=== PATIENT | male | born 1995 | race Two or more races ===

== ENCOUNTER 2022-08-23 08:52 | Emergency (ER) | payer MEDICAID ==
[2022-08-23 09:27] VITALS: BP 117/77
[2022-08-23] MEDS ORDERED: IBUP800T27 PO (10:21)
== END 2022-08-23 10:49 | disposition home or self-care (01) ==
LOC: ER 08:52
DX: S62.397A Other fracture of fifth metacarpal bone, left hand, initial encounter for closed fracture (principal); W22.01XA Walked into wall, initial encounter; Y93.89 Activity, other specified; Y92.89 Other specified places as the place of occurrence of the external cause; Y99.8 Other external cause status
CPT/HCPCS: 29125; 73130